=== PATIENT | female | born 1965 | race Caucasian/White ===

== ENCOUNTER → 2021-08-18 | Day surgery (SDC) | payer OTHER ==
[~2021-08-18] VITALS: Ht 158.8 cm; Wt 74.8 kg
[~2021-08-18] MED LIST: BROVANA15 MCG/2 M INH; GABAPENTIN100 MG PO; GABAPENTIN400 MG PO; NEURONTIN300 MG PO; NORCO 5/3251 EACH PO; OXY-IR 5MG5 MG PO; PAXIL20 MG PO; PLAVIX75 MG PO; PRILOSEC20 MG PO; PULMICORT0.5 MG/2 M NEB; SINGULAIR10 MG PO; SPIRIVA 18MCG18 MCG INH; TRAZODONE 50MG50 MG PO; VITAMIN D2000 UNI1 PO; WELLBUTRIN XL300 MG PO
[2021-08-18 07:58] LABS: HCT 46.4 % (37.0-47.0); HGB 15.2 g/dl (12.5-16.0); MCH 29.7 pg (25.0-31.0); MCHC 32.8 g/dL (32.0-36.0); MCV 90.8 fL (78.0-100.0); MPV 10.6 fL (6.0-9.5); RBC 5.11 M/uL (4.20-5.40); RDW 13.9 % (11.5-14.0); WBC 7.4 K/uL (4.0-10.5)
[2021-08-18 08:12] LABS: PROTHROMBIN TIME 12.6 SECONDS (11.8-13.4); PTT 33.2 SECONDS (24.4-34.7)
== END | disposition home or self-care (01) ==
LOC: FAS 07-28 07:30
PROVIDERS: Student in an Organized Health Care Education/Training Program
DX: D17.9 Benign lipomatous neoplasm, unspecified (principal); K43.2 Incisional hernia without obstruction or gangrene; I73.9 Peripheral vascular disease, unspecified; G62.9 Polyneuropathy, unspecified; J45.20 Mild intermittent asthma, uncomplicated; K21.9 Gastro-esophageal reflux disease without esophagitis; M19.90 Unspecified osteoarthritis, unspecified site; U07.1 COVID-19; Z98.890 Other specified postprocedural states; Z95.828 Presence of other vascular implants and grafts; Z79.02 Long term (current) use of antithrombotics/antiplatelets; Z88.8 Allergy status to other drugs, medicaments and biological substances; Z87.891 Personal history of nicotine dependence
CPT/HCPCS: 36415; 85610; 85730; 93005; J0690; J1644; J2250; J2405; J2704; J3010; J7120

== ENCOUNTER → 2022-03-23 | Day surgery (SDC) | payer OTHER ==
[~2022-03-23] VITALS: Ht 158.8 cm; Wt 74.8 kg
[~2022-03-23] MED LIST changes: +MELOXICAM15 MG PO; +NORCO 5-325 TA1 EACH PO; +NUCALA100 MG/11 SC; +OMEPRAZOLE40 MG PO; +PAROXETINE 10MG10 MG PO; +TIZANIDINE HCL4 MG PO
== END | disposition home or self-care (01) ==
LOC: FAS 02-25 07:00
DX: K29.70 Gastritis, unspecified, without bleeding (principal); R68.81 Early satiety
CPT/HCPCS: J2250; J2704; J7120